=== PATIENT | female | born 1975 | race Caucasian/White ===

== ENCOUNTER → 2022-11-03 | Emergency (ER) | payer OTHER ==
[~2022-11-03] VITALS: Ht 170.2 cm; Wt 83.9 kg
[~2022-11-03] MED LIST: MECL-225 PO; MECLIZINE HCL 25 MG TABLET (ANITVERT) PO ONE; NACL 0.9% 1,000 ML IV ONE; ONDANSETRON HCL 4 MG/2 ML VIAL IVP ONE; iohexoL 350 mgI/mL, 100 ML INFUS..BTL IV ONE
[2022-11-03 08:55] VITALS: BP_SYST 118
--- NOTE | 2022-11-03 08:55 | NUR ---
Patient to ER bed 1 to gown for evaluation. Side rails up. Report given to Dominic FISCHER.
--- NOTE | 2022-11-03 09:00 | NUR ---
Patient brought in by . Chief Complaint: N/v, vertigo, sob, and sweating. Patient a and o x4. Patient hx of c section, and thyroid disorder. Patient stable, at bedside
--- NOTE | 2022-11-03 09:05 | NUR ---
Dr. De Anda at bedside.
[2022-11-03 09:47] LABS: BASOPHILS # (AUTO) 0.1 K/uL (0.0-0.2); BASOPHILS % (AUTO) 0.9 % (0.0-2.0); EOSINOPHILS # (AUTO) 0.3 K/uL (0.0-0.4); HEMATOCRIT 40.7 % (36-48); LYMPHOCYTES # (AUTO) 3.1 K/uL (1.0-5.5); LYMPHOCYTES % (AUTO) 35.5 % (20.5-51.5); MEAN CORPUSCULAR HEMOGLOBIN 26 pg (27-31); MEAN CORPUSCULAR HGB CONC 32 % (32-36); MEAN CORPUSCULAR VOLUME 81 fL (79.0-98.0); MONOCYTES # (AUTO) 0.6 K/uL (0.0-1.0); MONOCYTES % (AUTO) 6.7 % (1.7-9.3); NEUTROPHILS # (AUTO) 4.6 K/uL (1.8-7.7); NEUTROPHILS % (AUTO) 53.9 % (40.0-70.0); PLATELET COUNT (AUTO) 286 K/uL (130-430); RED BLOOD CELL COUNT(AUTO) 5.01 MIL/uL (4.2-6.2); RED CELL DISTRIBUTION WIDTH 15.1 % (9.0-15.0); WHITE BLOOD COUNT (AUTO) 8.6 K/uL (4.8-10.8)
--- NOTE | 2022-11-03 10:00 | NUR ---
Patient taken to CT
[2022-11-03 10:01] LABS: ANION GAP 10 (5-15); CALCIUM 8.9 mg/dL (8.4-11.0); CHLORIDE 104 mmol/L (98-107); CREATININE 0.79 mg/dL (0.55-1.30); GLUCOSE 112 mg/dL (70-99); UREA NITROGEN, BLOOD 9 mg/dL (8-21)
[2022-11-03 10:08] LABS: BILIRUBIN,URINE NEGATIVE (NEGATIVE); BLOOD, URINE NEGATIVE (NEGATIVE); CLARITY/URINE CLEAR (CLEAR); COLOR,URINE YELLOW (YELLOW); GLUCOSE,URINE NEGATIVE (NEGATIVE); KETONES,URINE NEGATIVE (NEGATIVE); LEUKOCYTE ESTERASE ,URINE 1+ (NEGATIVE); NITRITE, URINE NEGATIVE (NEGATIVE); PH,URINE 5.5 (5.0-8.0); PROTEIN URINE NEGATIVE (NEGATIVE); UROBILINOGEN,URINE 0.2 (0.2-1.0)
[2022-11-03 10:08] LABS: ALANINE AMINOTRANSFERASE 23 U/L (12-78); ALBUMIN 3.6 g/dL (3.4-4.8); ASPARTATE AMINOTRANSFERASE 15 U/L (10-37); GFR AFRICAN AMERICAN 100 mL/min (>90); TOTAL BILIRUBIN 0.3 mg/dL (0.0-1.0)
[2022-11-03 10:28] LABS: BACTERIA,URINE RARE /HPF (None Seen); RBC,URINE 0-3 /HPF (0-3)
== END | disposition home or self-care (01) ==
LOC: SED 08:40
DX: R42 Dizziness and giddiness (principal); R06.02 Shortness of breath; Z79.899 Other long term (current) drug therapy
CPT/HCPCS: 99285; 70496; 96374; 71045; 96361; 80053; 81000; 83880; 85025; 87086; 84484; 36415; 70498; 70450; 76376; J8597; Q9967; J2405; J7030

== ENCOUNTER 2024-02-06 21:00 | Emergency (ER) | payer OTHER ==
[~2024-02-06] VITALS: Ht 170.2 cm; Wt 83.9 kg
[~2024-02-06 21:00] MED LIST changes: -MECLIZINE HCL 25 MG TABLET (ANITVERT) PO ONE; -NACL 0.9% 1,000 ML IV ONE; -ONDANSETRON HCL 4 MG/2 ML VIAL IVP ONE; -iohexoL 350 mgI/mL, 100 ML INFUS..BTL IV ONE
[2024-02-06 21:06] VITALS: BP_SYST 127; PULSE 87; RESP 16; TEMP 98.7; O2SAT 97
[2024-02-06] MEDS ORDERED: PRED20TA PO (23:02)
[2024-02-06] MEDS: DIPHENHYDRAMINE HCL 50 MG CAPSULE PO ONE (23:09)
[2024-02-06] MEDS: predniSONE 20 MG TABLET PO ONE (23:09)
[2024-02-06 23:15] VITALS: BP_SYST 127; PULSE 87; RESP 16; TEMP 98.7; O2SAT 97
== END 2024-02-06 23:15 | disposition home or self-care (01) ==
LOC: SED 21:00
DX: L29.9 Pruritus, unspecified (principal); Z79.899 Other long term (current) drug therapy
CPT/HCPCS: 99283; Q0163; J7512